=== PATIENT | female | born 1975 | race Caucasian/White ===

== ENCOUNTER 2025-03-11 13:46 | Emergency (ER) | payer OTHER ==
[~2025-03-11] VITALS: Ht 165.1 cm; Wt 70.3 kg
[2025-03-11] MEDS ORDERED: risperiDONE 1 MG TAB PO ONE (17:15)
[2025-03-11 17:16] VITALS: BP 162/80
== END 2025-03-11 17:18 | disposition home or self-care (01) ==
LOC: ED 13:46 → EDBD 13:47 → ED 13:47
DX: R09.A9 Foreign body sensation, other site (principal); Z88.0 Allergy status to penicillin
CPT/HCPCS: 99282